=== PATIENT | female | born 1945 | race Caucasian/White ===

== ENCOUNTER 2022-07-09 06:16 | Day surgery (SDC) | payer MEDICARE ==
[~2022-07-09] VITALS: Ht 160 cm; Wt 69.8 kg
[~2022-07-09 06:16] MED LIST: ALBU2.5V10 INH; BSS IRRIG/VANCO(10MG)/TOBRA(5MG)/EPINEPH(1:1000-0.5CC)500ML BAG-ORONLY IR ONE; BUPR150T12 PO; D3 S1CAP3 PO; GABA-1171 PO; GALZ50CA PO; LEVO88TA3 PO; LEXA1TAB2 PO; LIDOCAINE 3.5 % 1ML OPHTH TOPICAL GEL OU ONE; MAGN200T PO; OFLOXACIN 0.3 % (OCUFLOX) OPTH SOL 5ML OD ONE; PHENYLEPHRINE 10% OPHTH SOL 5ML OD PRN; ROSU10TA6 PO
[2022-07-09] MEDS ORDERED: LIDOCAINE 1% SDV 5ML VIAL As Ordered ONE (06:51)
[2022-07-09] MEDS: CYCLOPENTOLATE 1% OPHTH SOLN 2ML BTL OD SCH ×3 (06:53→07:00)
[2022-07-09] MEDS: TROPICAMIDE 1% OPHTH SOLN 15ML OD SCH ×3 (06:53→07:00)
[2022-07-09] MEDS: PHENYLEPHRINE 2.5% OPHTH SOL 2ML OD SCH ×3 (06:53→07:00)
[2022-07-09] MEDS ORDERED: fentaNYL 100 MCG/2 ML INJECTION As Ordered ONE (07:04)
[2022-07-09] MEDS ORDERED: MIDAZOLAM INJ 2MG/2ML VIAL As Ordered ONE (07:05)
[2022-07-09] MEDS ORDERED: CEFUROXIME 1MG/0.1ML INTRACAMERAL INJ As Ordered ONE (07:21)
[2022-07-09 08:30] VITALS: BP 179/88
== END 2022-07-09 08:53 | disposition home or self-care (01) ==
LOC: M SDC 06:16
PROVIDERS: ATTEND Ophthalmology
DX: H25.11 Age-related nuclear cataract, right eye (principal); E03.9 Hypothyroidism, unspecified; E78.9 Disorder of lipoprotein metabolism, unspecified; K21.9 Gastro-esophageal reflux disease without esophagitis; F41.9 Anxiety disorder, unspecified; F32.A Depression, unspecified; J44.9 Chronic obstructive pulmonary disease, unspecified; M19.90 Unspecified osteoarthritis, unspecified site; R06.83 Snoring; Z79.899 Other long term (current) drug therapy; Z79.890 Hormone replacement therapy
CPT/HCPCS: 66984; J0697; J2250; J3010; V2632

== ENCOUNTER 2022-07-16 10:05 | Day surgery (SDC) | payer MEDICARE ==
[~2022-07-16] VITALS: Ht 160 cm; Wt 68.5 kg
[~2022-07-16 10:05] MED LIST changes: +ACETYLCHOLINE OPHTH SOLN 1% 2ML (MIOCHOL-E) As Ordered ONE; +CEFUROXIME 1MG/0.1ML INTRACAMERAL INJ As Ordered ONE; +CYCLOPENTOLATE 1% OPHTH SOLN 2ML BTL OS SCH; +LIDOCAINE 1% SDV 5ML VIAL As Ordered ONE; +MIDAZOLAM INJ 2MG/2ML VIAL As Ordered ONE; -OFLOXACIN 0.3 % (OCUFLOX) OPTH SOL 5ML OD ONE; +OFLOXACIN 0.3 % (OCUFLOX) OPTH SOL 5ML OS ONE; -PHENYLEPHRINE 10% OPHTH SOL 5ML OD PRN; +PHENYLEPHRINE 10% OPHTH SOL 5ML OS PRN; +PHENYLEPHRINE 2.5% OPHTH SOL 2ML OS SCH; +TROPICAMIDE 1% OPHTH SOLN 15ML OS SCH; +fentaNYL 100 MCG/2 ML INJECTION As Ordered ONE
[2022-07-16 12:05] VITALS: BP 125/57
== END 2022-07-16 12:50 | disposition home or self-care (01) ==
LOC: M SDC 10:05
PROVIDERS: ATTEND Ophthalmology
DX: H25.12 Age-related nuclear cataract, left eye (principal); E78.5 Hyperlipidemia, unspecified; E03.9 Hypothyroidism, unspecified; Z98.51 Tubal ligation status; F32.A Depression, unspecified; F41.9 Anxiety disorder, unspecified; J44.9 Chronic obstructive pulmonary disease, unspecified; Z79.899 Other long term (current) drug therapy; Z79.51 Long term (current) use of inhaled steroids
CPT/HCPCS: 66984; J0697; J2250; J3010; V2632